=== PATIENT | female | born 1935 | race Caucasian/White ===

== ENCOUNTER → 2018-01-03 | Outpatient (CLI) | payer MEDICARE | END | disposition home or self-care (01) | LOC: CFH 12:05 | PROVIDERS: ATTEND Family Medicine | DX: Z13.820 Encounter for screening for osteoporosis (principal); N95.9 Unspecified menopausal and perimenopausal disorder | CPT/HCPCS: 77080 ==

== ENCOUNTER 2018-04-07 07:09 | Emergency (ER) | payer MEDICARE ==
[~2018-04-07] VITALS: Ht 157.5 cm; Wt 73.1 kg
[2018-04-07 07:16] VITALS: BP 134/84
== END 2018-04-07 08:13 | disposition home or self-care (01) ==
LOC: ED 08:10
DX: B30.1 Conjunctivitis due to adenovirus (principal)
CPT/HCPCS: 99282